=== PATIENT | female | born 1965 | race Caucasian/White ===

== ENCOUNTER 2023-06-19 06:41 | Day surgery (SDC) | payer BC, SELFPAY ==
[2023-06-19 08:22] VITALS: BP 113/81
[2023-06-19 08:30] VITALS: BMI 32.3
[2023-06-19 10:46] VITALS: BP 109/62
[2023-06-19 11:00] VITALS: BP 118/75
== END 2023-06-19 11:15 | disposition home or self-care (01) ==
LOC: SDS 06:41
PROVIDERS: ATTENDING PHYSICIAN Internal Medicine Gastroenterology
DX: D12.2 Benign neoplasm of ascending colon (principal); D12.3 Benign neoplasm of transverse colon; K63.89 Other specified diseases of intestine; K57.30 Diverticulosis of large intestine without perforation or abscess without bleeding; D12.8 Benign neoplasm of rectum; Z86.010 Personal history of colon polyps
CPT/HCPCS: 45385; 45380; 45381; 88305

== ENCOUNTER → 2023-06-23 08:47 | Outpatient (REF) | payer BC, SELFPAY | LOC: RAD 08:47 | PROVIDERS: ATTENDING PHYSICIAN Internal Medicine Gastroenterology; FAMILY PHYSICIAN Family Medicine | DX: D12.2 Benign neoplasm of ascending colon (principal) | CPT/HCPCS: 76700 ==